=== PATIENT | male | born 1960 | race Caucasian/White ===

== ENCOUNTER 2018-11-14 07:20 | Day surgery (SDC) | payer BC ==
--- NOTE | 2018-11-10 14:59 | RAD REPORT ---
EXAM DESCRIPTION: RAD - Chest Pa And Lat (2 Views) - 11/10/2018 2:47 pm CLINICAL HISTORY: preop Chest pain. COMPARISON: CHEST PA AND LAT 2 VIEW dated 07/26/2013; CHEST SINGLE VIEW dated 07/24/2013; CHEST SINGLE VIEW dated 07/23/2013; CHEST SINGLE VIEW dated 02/12/2011 FINDINGS: The lungs are mildly emphysematous but clear. The heart is normal in size. No displaced fr actures. IMPRESSION: Mild COPD.
[2018-11-10 15:52] LABS: Absolute Lymphocytes (CBC) 2.2 K/uL (0.7-4.9); Basophils % 0.6 % (0-1.3); Hematocrit 44.7 % (39.6-49.0); Lymphocytes % 27.1 % (15.3-44.8); MPV 10.1 fL (7.6-11.3); RBC Red Blood Cell Count 5.06 M/uL (4.33-5.43)
[2018-11-10 16:07] LABS: Potassium 4.4 mmol/L (3.5-5.1)
--- OUTSIDE RECORDS SUMMARY | 2018-11-14 07:23 | XMS REPORT | Clinical Summary ---
:1960 Author Organization [facility] Address [address] [place] [address] Care Team Providers Name Role Phone Lianna Ignacio PA-C Primary Care Provider Allergies Active Allergy Reactions Severity Noted Date Comments No Known Drug Allergies 09/03/2015 Medications Medication Sig Dispensed Refills Start Date End Date Status HYDROcodone-acetaminoph TK 1 TO 2 TS PO Q 0 07/19/2015 Active en (NORCO) 5-325 mg per 4 TO 6 H PRN P tablet promethazine TK 1 T PO Q 6 H 0 07/19/2015 Active (PHENERGAN) 25 MG PRN N tablet meloxicam (MOBIC) 15 mg Take 1 tablet (15 21 tablet 0 07/09/2016 Active tablet mg total) by mouth daily. Active Problems Problem Noted Date Rotator cuff (capsule) sprain 09/20/2015 S/P shoulder rotator cuff repair 08/20/2015 Overview: Gave referral to begin PT f/u 4wks Family History Medical History Relation Name Comments No Known Problems Father No Known Problems Mother No Known Problems Other siblings No Known Problems Other children Relation Name Status Comments Father Mother Other siblings Alive Other children Alive Social History Tobacco Use Types Packs/Day Years Used Date Never Smoker Smokeless Tobacco: Never Used Alcohol Use Drinks/Week oz/Week Comments Yes Sex Assigned at Date Recorded Not on file Job Start Date Occupation Industry Not on file Not on file Not on file Travel History Travel Start Travel End No recent travel history available. 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
[2018-11-14] MEDS ORDERED: Ringers Lactate 1,000 ML IV ONE ×2 (07:35→11:02)
[2018-11-14] MEDS ORDERED: EPINEPHRINE/PF 1 MG/ML AMP ONE (08:04)
[2018-11-14] MEDS ORDERED: NS 0.9% VIAL 0 ML ONE (08:04)
[2018-11-14] MEDS ORDERED: BALANCED SALT IRRIG PLAIN 500 ML BTL IRR ONE (08:05)
[2018-11-14] MEDS ORDERED: DUOVISC 1 KIT OPTH ONE (08:05)
[2018-11-14] MEDS ORDERED: MOXIFLOXACIN HCL 10 DROPS/ML **OR USE OPTH ONE (08:06)
[2018-11-14] MEDS ORDERED: LIDOCAINE 1% MPF 2 ML AMPULE ONE (08:06)
[2018-11-14] MEDS ORDERED: MIDAZOLAM HCL 2 MG/2 ML INJ ONE (08:16)
[2018-11-14] MEDS ORDERED: PROPOFOL 200 MG/20 ML VIAL IV ONE (08:16)
[2018-11-14] MEDS ORDERED: GLYCOPYRROLATE 0.2 MG/ML SYR ONE (08:18)
[2018-11-14] MEDS ORDERED: LIDOCAINE 2% MPF 5 ML VIAL ONE (08:19)
[2018-11-14] MEDS ORDERED: FENTANYL CITR 250 MCG/5 ML ONE (08:19)
[2018-11-14] MEDS ORDERED: ONDANSETRON 4 MG/2 ML VIAL ONE (08:23)
[2018-11-14] MEDS ORDERED: ROCURONIUM 50 MG/5 ML VIAL IV ONE (08:24)
[2018-11-14] MEDS ORDERED: NEOSTIGMINE 1 MG/ML -10 ML VIAL ONE (08:24)
[2018-11-14] MEDS ORDERED: CIPROFLOXACIN 400mg IV 400 MG/200 ML BAG IV ONE (08:25)
[2018-11-14] MEDS ORDERED: BSS OPTHALMIC SOL 15 ML BOT OPTH ONE (09:00)
[2018-11-14] MEDS: MEPERIDINE HCL 25 MG/0.5 ML ONE ×2 (09:32→09:38)
--- NOTE | 2018-11-14 09:45 | P.BOP ---
Preoperative diagnosis: left inguinal hernia Postoperative diagnosis: same Primary procedure: Laparoscopic repair of left inguinal hernia Security Clerk: Cyn Wright (Declan) Estimated blood loss: <10cc Specimen: hernia sac Findings: as above Anesthesia: General Complications: None Transferred to: Recovery Room Condition: Good
[2018-11-14] MEDS ORDERED: CODEINE 30MG/APAP 300MG TAB ONE (12:14)
[2018-11-14 13:19] VITALS: TEMP 97.9; O2SAT 98
[2018-11-14 13:24] VITALS: BP 116/64
--- NOTE | 2018-11-14 16:58 | EKG ---
Test Date: 2018-11-10 Test Time: 14:52:35 Powder Compounder: SYLVESTER MEASUREMENT RESULTS: Intervals: Rate: 66 HI: 148 QRSD: 90 QT: 416 QTc: 436 [place]: P: 70 HI: 148 QRS: 29 T: 58 INTERPRETIVE STATEMENTS: Sinus rhythm with premature atrial complexes Otherwise normal ECG Compared to ECG 02/11/2011 21:28:45 Atrial premature complex(es) now present Sinus bradycardia no longer present Left ventricular hypertrophy no longer present Electronically Signed On 11-14-18 16:55:50 CDT by Lenny Chowdhury
--- NOTE | 2018-11-14 21:04 | OP ---
Date of Procedure: 11/14/2018 Surgeon: Yeison Dalton MD Holter Technician: ABEL Boykin. Diagnosis: Left inguinal hernia. Procedure: Laparoscopic repair of left inguinal hernia with mesh. Specimens: Hernia sac. Findings: Direct and indirect hernia. Anesthesia: General plus local. Indications: This is the case of a 58-year-old patient who comes to us with a tender left inguinal h ernia. Benefits, alternatives, and risks of laparoscopic, possible open repair were fully explained which include, but are not limited to infection, bleeding, damage to adjacent structures, anesthesia complications, chronic pain, chronic numbness, recurrence, PR, and even . He also understands t his may not relieve any symptoms. He might need more than one surgical intervention. He was explain ed the intention to use mesh in that area. Pros and cons of mesh placement with used. All the quest ions were answered to his satisfaction and then he did allow me to use mesh. Description Of Procedure: The patient was brought to the operating room, placed in supine position, anesthesia was done without complication. Time-out was called. Abdomen and inguinal region were pre pped and draped in a sterile fashion. Local anesthesia was applied. Skin incision was made over the infraumbilical region and the anterior rectus sheath was opened on the left side and muscle retracte d laterally to expose the posterior rectus sheath. The extraperitoneal space was gently developed wi th blunt dissection and then a balloon tip space maker trocar was placed over the area and directed t owards the pubic symphysis. A laparoscope was placed inside that area and the balloon was inflated u nder direct visualization to create the extraperitoneal space. The balloon was removed under direct visualization. We insufflated the area and a 5 mm trocar was placed at the area just above the pubic symphysis and another one [facility] between the first and the second one. The preperitoneal space was developed by exposing the inferior epigastric vessels and keeping them anterior. Graeme ligament wa s dissected laterally to the junction with the iliac veins. We continued dissection inferiorly to th e iliopubic tract, avoiding damage to the femoral branch of the genitofemoral nerve and the lateral f emoral cutaneous nerve. The cord structures were visualized and skeletonized. We noticed direct and indirect sac. The indirect sac was tracked into the abdominal cavity. The direct sac was also shabbir shorty. This was done by gentle traction. At that moment, I placed a 3D mesh on the left side, medium size, brought it to one of the trocar sites, aligned to cover direct indirect spaces. The mesh area was secured in place with SorbaFix laterally and superior to the iliopubic tract and inferomedial to the Graeme ligament. We visualized the area, expressed some local anesthetic over the region and no bleeding. Hernia sac was still retracted into the peritoneal cavity. We deflated the area under dir ect visualization holding the mesh in place. Then removed the trocars. Closed the anterior rectus s basil with #1 Vicryl and the skin in a subcuticular fashion with 3-0 chromic and Steri-Strips on top. Sponge count and instrument counts were correct at the end of the case. Testicles were in the scro darcy. Patient was sent to recovery in stable condition. Disposition: Home. Activity: As tolerated. No heavy lifting. Followup: Follow up in my office in 1 week. Call for appointment [phone]. Keep area dry for 48 ho urs, then may shower. Cold compresses to the left inguinal region. Medications: See orders. MELISA/MODL Voice ID: [id number] Report ID: [id number]
== END 2018-11-14 13:47 | disposition home or self-care (01) ==
LOC: OR 07:20
PROVIDERS: ATTEND Surgery
PROC: 0YU64JZ Supplement Left Inguinal Region with Synthetic Substitute, Percutaneous Endoscopic Approach (ICD-10-PCS; principal; 2018-11-14 08:30)
DX: K40.90 Unilateral inguinal hernia, without obstruction or gangrene, not specified as recurrent (principal); K21.9 Gastro-esophageal reflux disease without esophagitis; M19.90 Unspecified osteoarthritis, unspecified site; Z88.0 Allergy status to penicillin; Z80.3 Family history of malignant neoplasm of breast; Z80.0 Family history of malignant neoplasm of digestive organs; Z80.1 Family history of malignant neoplasm of trachea, bronchus and lung
CPT/HCPCS: 93005; 85025; 80048; 36415; 88302; 71046; 49650; J2704; J2710; J2250; J3010; J2175; J2405; J0744; J0171; J2001